=== PATIENT | female | born 1975 | race Caucasian/White ===

== ENCOUNTER 2016-12-09 16:58 | Emergency (ER) | payer OTHER ==
[~2016-12-09 16:58] MED LIST: ATORVASTATIN CA40 MG PO; GLUCOPHAGE1000 MG PO; GLUCOTROL5 MG PO; KLONOPIN0.5 MG PO; LAMICTAL200 MG PO; LATUDA60 MG PO; LOPID TAB 600600 MG PO; NAPROSYN500 MG PO; NEURONTIN 400400 MG PO; NORCO 10-325 T1 EACH PO; ROBAXIN-750750 MG PO; SINGULAIR10 MG PO; TRAMADOL HCL50 MG PO; TRAZODONE HCL100 MG PO
[2016-12-09 21:04] LABS: HEMOGLOBIN 15.9 gm/dl (12.3-15.3); RED BLOOD COUNT 5.63 M/UL (4.00-5.10); WHITE BLOOD COUNT 11.5 K/UL (4.5-11.0)
[2016-12-09 21:20] LABS: BUN/CREATININE RATIO 16 (0-10)
== END 2016-12-09 22:22 | disposition home or self-care (01) ==
LOC: ER1 16:58
PROVIDERS: Family Medicine
DX: L02.211 Cutaneous abscess of abdominal wall (principal)
CPT/HCPCS: 36415; 80053; 81001; 82150; 83690; 85025; 87070; 87205; 99284

== ENCOUNTER → 2022-04-11 | Outpatient (CLI) | payer MEDICARE, OTHER ==
[~2022-04-11] MED LIST changes: +CLEOCIN HCL300 MG PO; +IBUPROFEN600 MG PO; +LIDOCAINE 2%
== END ==
LOC: KOH-I 13:37
DX: M25.572 Pain in left ankle and joints of left foot (principal); M25.571 Pain in right ankle and joints of right foot
CPT/HCPCS: 73610; 73630